=== PATIENT | female | born 1995 | race Two or more races ===

== ENCOUNTER 2022-09-16 10:28 | Emergency (ER) | payer MEDICAID ==
[~2022-09-16] VITALS: Ht 160 cm; Wt 68.2 kg
[2022-09-16 11:12] VITALS: BP 103/67
[2022-09-16] MEDS ORDERED: triamcinolone acetonide 40mg/ml inj IM ONE (13:45)
[2022-09-16] MEDS ORDERED: METH4TAB3 PO (13:46)
[2022-09-16] MEDS ORDERED: HYDR28CR14 TOP (13:46)
== END 2022-09-16 14:09 | disposition home or self-care (01) ==
LOC: ER 10:30
DX: L25.9 Unspecified contact dermatitis, unspecified cause (principal); Z79.899 Other long term (current) drug therapy
CPT/HCPCS: 96372; 99283; J3301

== ENCOUNTER 2023-07-17 15:03 | Emergency (ER) | payer MEDICAID ==
[~2023-07-17] VITALS: Ht 160 cm; Wt 68.5 kg
[~2023-07-17 15:03] MED LIST: HYDR28CR14 TOP; METH4TAB3 PO
[2023-07-17] MEDS ORDERED: albuterol 2.5 MG/3 ML nebule NEB ONE (15:15)
[2023-07-17 15:40] VITALS: PULSE 98; RESP 18; O2SAT 93
[2023-07-17] MEDS ORDERED: dexamethasone sod phosphate 10mg/ml inj IV STA (15:44)
[2023-07-17] MEDS ORDERED: ipratropium 0.5 MG/2.5ML nebule IH ONE (15:45)
[2023-07-17] MEDS ORDERED: albuterol 2.5 MG/3 ML nebule CONTNEB PRN (15:45)
[2023-07-17] MEDS ORDERED: magnesium 2GM in 50ml NS 50 ML IV ONE (15:45)
[2023-07-17 15:50] VITALS: PULSE 88; RESP 18; O2SAT 100
[2023-07-17] MEDS ORDERED: PRED20TA PO (16:03)
[2023-07-17] MEDS ORDERED: ALBU6.7H14 INH (16:03)
[2023-07-17 16:17] VITALS: BP 126/78; PULSE 82; RESP 18; TEMP 97.7; O2SAT 99
== END 2023-07-17 16:18 | disposition home or self-care (01) ==
LOC: ER 15:04
DX: J45.901 Unspecified asthma with (acute) exacerbation (principal); Z79.899 Other long term (current) drug therapy
CPT/HCPCS: 94640; 96374; 99283; J1100; 94760